=== PATIENT | female | born 1975 | race Hispanic/Latino ===

== ENCOUNTER 2019-04-28 08:38 | Observation (INO) | payer OTHER ==
[2019-04-27 12:40] LABS: Basophils # (Auto) 0.1 K/mm3 (0.0-0.1); Eosinophils % (Auto) 0.4 % (0.0-4.3); Hematocrit 31.5 % (30.3-42.9); Hemoglobin 9.7 gm/dl (10.1-14.3); Lymphocytes # (Auto) 1.7 K/mm3 (1.2-5.4); Lymphocytes % (Auto) 24.1 % (13.4-35.0); Mean Corpuscular HGB Conc 31 % (30-34); Mean Corpuscular Volume 68 fl (79-97); Monocytes # (Auto) 0.5 K/mm3 (0.0-0.8); Monocytes % (Auto) 6.9 % (0.0-7.3); Platelet Count 440 K/mm3 (140-440); Red Blood Count 4.61 M/mm3 (3.65-5.03); Red Cell Distribution Width 23.9 % (13.2-15.2)
[2019-04-27 12:53] LABS: BUN/Creatinine Ratio 13; Blood Urea Nitrogen 10 mg/dL (7-17); Calcium 8.7 mg/dL (8.4-10.2); Hemolysis Index 1
--- NOTE | 2019-04-27 13:40 | Anesthesia Consultation ---
Anesthesia Consult and Med Hx Date of service: 04/28/19 - Airway Anesthetic Teeth Evaluation: Good ROM Head & Neck: Adequate Mental/Hyoid Distance: Adequate Mallampati Class: Class I Intubation Access Assessment: Probably Good - Pulmonary Exam CTA: Yes - Cardiac Exam Cardiac Exam: RRR - Pre-Operative Health Status ASA Pre-Surgery Classification: ASA2 Proposed Anesthetic Plan: General Nerve Block: TAP - Pulmonary Hx Smoking: No Hx Respiratory Symptoms: No - Cardiovascular System Hx Hypertension: No Hx Heart Attack/AMI: No - Central Nervous System CVA: No Hx Back Pain: Yes (LUMBAR) - Gastrointestinal Hx Gastroesophageal Reflux Disease: No - Hematic Hx Anemia: Yes - Other Systems Hx Obesity: Yes (BMI 43) - Additional Comments Anesthesia Medical History Comments: Hx PONV.
--- NOTE | 2019-04-27 14:58 | History and Physical Report ---
History of Present Illness Date of examination: 04/25/19 History of present illness: Patient has been reassessed/reevaluated. H&P has been reviewed. No interval changes. This is a 43 years old female who presents with pelvic pain. The symptoms began 6-12 months ago. She complains of dyspareunia and back pain, but denies dysuria, dysmenorrhea, vaginal itching, vaginal discharge, vaginal odor, painful bowel movements, constipation, diarrhea, nausea, vomiting and fever. Pain is located LUQ, RUQ, umbilicus, suprapubic, flank and low back. She describes the pain as sharp, dull and cramping. Duration of pain is >1 hour and constant. Episodes are > 1 an hour, intermittent and unpredictable. Patient notes pain is worse with activity. Patient notes pain is better with narcotics and rest. Patient's work up has included muliple pelvic ultrasounds and CT scans with showed ppersistent ovarian cyst. Conservative therapies have failed. Patient desires definitive treatment Patient desires definitive treatment Vital Signs: Patient Profile: 43 Years Old Female LMP: 10/2018 Height: 64.0 inches (162.56 cm) Weight: 254 pounds BMI: 43.59 Menstrual History: LMP (date): 10/2018 Current Method of Contraception: None Date of Last Pap Smear: 03/29/2019 Past History : 3 Term Births: 2 Premature Births: 0 Living Children: 2 Para: 2 Mult. Births: 0 Prev : 2 Prev. attempt? none Aborta: 1 Elect. Ab: 0 Spont. Ab: 1 Ectopics: 0 # 1 Delivery date: Weeks Gestation: 41 Delivery type: Hours of labor: .24 Anesthesia type: epidural Delivery location: [facility] [place] Sex: Male weight: [id number] # 2 Delivery date: 05/26 Weeks Gestation: 8 Delivery type: SAB # 3 Delivery date: 08/25 Weeks Gestation: 39 Delivery type: Anesthesia type: spinal Delivery location: [facility] Sex: Male weight: 10 lbs [employer] History Operations: Gastric Bypass: (2004) Cholecystectomy (2004) D&C: Hysteroscopy: () & () S-I Joint (2018) Infection History HIV Risk Eval: no Current Allergies (reviewed today): * ASPIRIN (Critical) * IODINE CONTRAST (Critical) * SHELL FISH (Critical) * CLINDAMYCIN (Critical) * LYRICA (Critical) Past Medical History: Asthma Depression Back pain Past Surgical History: Gastric Bypass: (2004) Cholecystectomy (2004) D&C: Hysteroscopy: () & (03) S-I Joint (2019) Family History Summary: General Comments - FH: Family History of Coronary Heart Disease Family History of Diabetes Family History of Hypertension Family History of Renal Disease Social History: Marital Status: Children: Occupation: Smoking History: Patient has never smoked. Risk Factors: Smoked Tobacco Use: Never smoker Smokeless Tobacco Use: Never Passive smoke exposure: no Drug use: no HIV high-risk behavior: no Caffeine use: 1 drinks per day Alcohol use: no Exercise: yes Times per week: 3 Seatbelt use: 100 % PAP Smear History: Date of Last PAP Smear: 03/29/2019 Review of Systems General Complains of fatigue. Denies fever, chills, sweats, anorexia, weakness, malaise, weight loss and sleep disorder. Complains of pelvic pain and hot flashes. Denies vaginal discharge, incontinence, dysuria, hematuria, urinary frequency, amenorrhea, menorrhagia, abnormal vaginal bleeding, genital sores, decreased libido, painful periods, painful sex, urinary urgency, vaginal dryness, vaginal itching and vaginal odor. CV Denies chest pains, palpitations, syncope, dyspnea on exertion, orthopnea, PND and peripheral edema. Resp Denies cough, dyspnea at rest, excessive sputum, hemoptysis, wheezing and pleurisy. GI Denies nausea, vomiting, diarrhea, constipation, change in bowel habits, abdominal pain, melena, hematochezia, jaundice, gas/bloating, indigestion/heartburn, dysphagia and odynophagia. Breast Denies left breast lump, right breast lump, nipple discharge, bloody discharge from nipple, breast pain, abnormal mammogram and breast enlargement. Psych Denies depression, anxiety, irritability and mood swings. Past History Past Medical History: other (SEE HPI) Past Surgical History: Other (SEE HPI) Social history: full code, other (SEE HPI) Family history: other (SEE HPI) Medications and Allergies Allergies Allergy/AdvReac Type Severity Reaction Status Date / Time aspirin Allergy Anaphylaxis Verified 04/27/19 12:49 clindamycin Allergy Rash Verified 04/27/19 12:49 Iodinated Contrast Media Allergy Rash Verified 04/27/19 12:49 pregabalin [From Lyrica] Allergy Rash Verified 04/27/19 12:49 shellfish derived Allergy Anaphylaxis Verified 04/27/19 12:49 Home Medications Medication Instructions Recorded Confirmed Last Taken Type Black Cohosh Root Extract [Black 160 mg PO DAILY 04/27/19 04/27/19 Unknown History Cohosh] Cyclobenzaprine [Flexeril] 10 mg PO TID PRN 04/27/19 04/27/19 Unknown History Diclofenac Sodium 75 mg PO BID 04/27/19 04/27/19 Unknown History Fish Oil/Borage/Flax/Om3,6,9 1 1,200 mg PO DAILY 04/27/19 04/27/19 Unknown History [[place] 3-6-9 1,200 mg Softgel] Gabapentin [Neurontin] 100 mg PO BID 04/27/19 04/27/19 Unknown History Gabapentin [Neurontin] 800 mg PO QHS 04/27/19 04/27/19 Unknown History Iron,Carbonyl [Perfect Iron] 25 mg PO DAILY 04/27/19 04/27/19 Unknown History Multivit with Calcium,Iron,Min 1 each PO DAILY 04/27/19 04/27/19 Unknown History [Multiple Vitamins For Women] traMADoL [Ultram] 50 mg PO BID 04/27/19 04/27/19 Unknown History Active Meds: Active Medications Acetaminophen (Tylenol) 1,000 mg PO ONCE ONE Stop: 04/28/19 06:01 Fentanyl (Sublimaze) 100 mcg IV ONCE PRN PRN Reason: sedation for nerve block Cefazolin Sodium 3 gm/ Sodium (Chloride) 100 mls @ 100 mls/30 min IV PREOP NR; Protocol Lactated Ringer's (Lactated Ringers) 1,000 mls @ 100 mls/hr IV DIRECT ROSA Midazolam HCl (Versed) 2 mg IV PREOP NR Scopolamine (Transderm-Scop) 1 each TD PREOP NR Review of Systems Constitutional: other (SEE HPI) Exam - Physical Exam Narrative exam: HEENT: normocephalic, no lesions or deformities Skin no ulcers, xanthomas Chest: respiratory effort normal, clear to auscultation CV: regular, normal S1-S2, no murmur, no rub, no gallop Abdomen: Obese normal bowel sounds, soft, nontender, no HSM Well healed pfannenstiel scar Neuro: no gross anomalities Extremities: no clubbing, cyanosis, or edema [employer] Exams Vulva/Vagina: normal appearance, no discharge, lesions. No evidence of cystocele or rectocele. Cervix: normal appearance, no lesions, no discharge Uterus: unable to palpate due to obesity Adnexae: unable to palpate due to obesity Rectovaginal: exam defered Results - Labs CBC & Chem 7: 04/27/19 12:20 04/27/19 12:20 Labs: Abnormal lab results 04/27/19 Range/Units 12:20 Hgb 9.7 L (10.1-14.3) gm/dl MCV 68 L (79-97) fl MCH 21 L (28-32) pg RDW 23.9 H (13.2-15.2) % Assessment and Plan - Patient Problems (1) Chronic pelvic pain in female Current Visit: No Status: Acute Plan to address problem: Probably secondary to # 2 Conservative therapies have failed. Patient desires definitive treatment Medical and surgical treatment options discussed Patient desires hysterectomy Discussed risks and benefits of laparotomy, laparoscopy, vaginal and robotic assisted approaches for hysterectomies. Patient desires robotic assisted total hysterectomy.Patient desires robotic assisted total hysterectomy. Consent reviewed and signed . The risks and alternatives for this surgery were reviewed with the patient. Discuss the risks of the surgery including infection, bleeding possibly heavy enough to require a blood transfusion, possible damage to bowel, bladder or ureter. Patient understand that this surgery with make her sterile.Patient understands if her ovaries are removed she will become menopausal. Also if unable to complete robitcally a laparotomy may required. Patient advised the small risks of spreading of malignancy if morcellator is used during the surgery patient understands and approve of use if necessary (2) Bilateral ovarian cysts Current Visit: No Status: Acute Plan to address problem: Probable etiology of pain Conservative therapies have failed. Patient desires definitive treatment Discussed oophorectomy Patient desires definitive treatment Patient desires hysterectomy (3) Premature menopause Current Visit: No Status: Chronic (4) H/O: depression Current Visit: No Status: Chronic (5) Asthma Current Visit: No Status: Chronic Qualifiers: Asthma severity: mild Asthma persistence: intermittent (6) BMI 40.0-44.9, adult Current Visit: No Status: Chronic
[~2019-04-28 08:38] MED LIST: ACETAMINOPHEN 500 MG TAB PO NR; LACTATED RINGERS 1,000 ML IV SCH; MIDAZOLAM 2 MG/2 ML INJ IV NR; SCOPOLAMINE TRANSDERMAL PATCH 72 HR TD NR; fentaNYL 100 MCG/2 ML INJ IV PRN
[2019-04-28] MEDS ORDERED: BUPIVACAINE-EPINEPHRINE/PF 0.25%-1:200,000 (30 ML) VIAL INFILTRATI ONE (09:29)
[2019-04-28] MEDS ORDERED: dexAMETHasone 4 MG/ML VIAL ONE (09:29)
[2019-04-28] MEDS ORDERED: PROPOFOL 200 MG/20 ML VIAL IV ONE (13:01)
[2019-04-28] MEDS ORDERED: fentaNYL 100 MCG/2 ML INJ ONE (13:02)
[2019-04-28] MEDS ORDERED: LIDOCAINE MPF (2%) 20 MG/1 ML VIAL 5 ML ONE (13:02)
[2019-04-28] MEDS ORDERED: NEOMY 40 MG/POLYMYXIN B 200,000 UNITS/ML (GU) AMPULE IR ONE ×2 (15:01→16:00)
[2019-04-28] MEDS ORDERED: ROCURONIUM 50 MG/5 ML INJ IV ONE ×2 (15:08→16:05)
[2019-04-28] MEDS ORDERED: SODIUM CHLORIDE 0.9% IRR 1,000 ML BOTTLE IR ONE (16:01)
[2019-04-28] MEDS ORDERED: ONDANSETRON 4 MG/2 ML INJ ONE (16:57)
[2019-04-28] MEDS ORDERED: KETOROLAC 30 MG/1 ML INJ ONE (16:57)
[2019-04-28] MEDS ORDERED: METOCLOPRAMIDE 10 MG/2 ML INJ ONE (16:57)
[2019-04-28] MEDS ORDERED: NEOSTIGMINE 10MG/10 ML INJ MDV ONE (16:57)
[2019-04-28] MEDS ORDERED: GLYCOPYRROLATE 0.4 MG/2 ML INJ ONE (16:57)
[2019-04-28] MEDS ORDERED: dexAMETHasone 20 MG/5 ML VIAL ONE (16:57)
[2019-04-28] MEDS ORDERED: LACTATED RINGERS 1,000 ML ONE (17:13)
--- NOTE | 2019-04-28 17:25 | Operative Report ---
Operative Report Operative Report: Operative Report: Date of procedure: 04/28/2019 Pre-operative diagnosis: Pelvic pain with persistent right ovarian cysts Post-operative diagnosis: Same with right tubal cysts and pelvic adhesions Procedure name(s): Robotic assisted total hysterectomy with bilateral salpingo- oophorectomy with lysis of adhesions Surgeon: Albert Galvan MD Celery Tier: Leeanne Dumas, certified registered locksmith Anesthesia: General EBL: 50 mL Complications: None Findings: Uterus approximately 8 weeks in size with proximally 6-7 cm clear paratubal cysts on her right with normal ovaries bilaterally. Patient with adhesions between the anterior uterus and bladder Specimen(s): Uterus including cervix was bilateral adnexa Procedure: Patient was brought to the operating room where general anesthesia was induced without difficulty. Patient was placed in the dorsal lithotomy position. Prepped and draped in the usual sterile manner for robotic procedure. Butcher catheter was placed without difficulty. Speculum was placed in the vagina. A small V-Care Uterine manipulator was placed without difficulty. A ttention was now switched to the patient's abdomen. A vertical supra-umbilicus incision was made with a scalpel. A 10-12 trocar was placed in this incision under direct visualization. Intra-abdominal placement was verified with no evidence of internal organ damage. The patient pelvic findings were noted as above. It was determined that the patient was a candidate for robotic procedure. On both sides the umbilical incision at 8 cm, incisions were made for robotic trocar. Each robotic trocar was placed under direct visualization with no evidence of internal organ damage. One senior care assistant port was then placed. One 5 mm trocar was placed 2 fingerbreadths above the right iliac crest under direct visualization with no evidence of internal organ damage. At this time the patient was placed in extreme Trendelenburg. The da Katelyn robot was then docked on the patient's left side. The da Katelyn device was attached to the trochars and instruments placed. At this time I took my place under the robotic operating weinstein. The adhesions between the uterus and the bladder were taken down sharply and bluntly. Starting on the patient's right side the right ureter was clearly seen out of the operative field. The ovarian vessels were clearly seen cauterize and cut with the robotic scissors. The mesosalpinx were cauterized and cut reaching to the round ligament. The round ligament was cauterized and cut. The leaves of the broad ligament on that side was anteriorly and posteriorly. The anterior leaves were use to form a bladder flap anteriorly the posterior leaf was cut exposing the uterine vessels on that side. The uterine vessels were cauterized and cut the bladder flap was more clearly made. Attention was then switched to the patient's left side. Where the ureter was again identified and cleared out of the field. The same procedure was cauterized and cut and the ovarian vessels and receiving with some incising the round ligament broad the broad ligament then cauterized and cut and the uterine vessels were performed.. At this time the uterus was appearing very cyanotic. After inspecting the bladder flap insured no evidence of bladder injury, the c olpotomy was then started. Incision started at 6:00 until the V-Care could be seen. This incision was extended from 6:00 to 9:00. Then from 6:00 to 3:00. Then from 9:00 to 12:00. This incision was extended from 3:00 to 12:00. At this time colpotomy was complete with no evidence of adjacent organ damage. The senior care assistant remove the uterus from through the colpotomy site. The vaginal cuff was irrigated and cauterized and found to be hemostatic. The cuff was closed with roboticly using 0 V- Lock suture. This closure was hemostatic after irrigation and Bovie. All pedicles were inspected and found to be hemostatic. The ureters were identified bilaterally and found to be functioning normal. The Butcher bag had clear yellow urine. Michelle was placed across the vaginal cuff and the ligated vessels All instruments were then removed. The large trocar sites were closed in layers 0 Vicyl and 4-0 Monocryl. The smaller incisions were closed subcuticularly with 4-0 Monocryl. The patient tolerated procedure well. She was awakened in the operating room and accompanied to the recovery room in good condition.
[2019-04-28] MEDS ORDERED: HYDROmorphone 1 MG/1 ML INJ ONE (17:39)
[2019-04-28] MEDS: HYDROmorphone 1 MG/1 ML INJ IV PRN ×3 (17:40→23:06)
--- NOTE | 2019-04-28 18:06 | Anesthesia Day of Surgery ---
Anesthesia Day of Surgery - Day of Surgery Patient Examined: Yes Patient H&P Reviewed: Yes Patient is NPO: Yes
--- NOTE | 2019-04-28 18:35 | Post Anesthesia Evaluation ---
- Post Anesthesia Evaluation Patient Participated: Yes Airway Patent: Yes Stable Respiratory Function: Yes Nausea/Vomiting: No Temp > 96.8F: Yes Pain Manageable: Yes Adequeate Hydration: Yes Anesthesia Complications: No
[2019-04-28] MEDS ORDERED: MAGNESIUM HYDROXIDE (MOM) ORAL LIQD UDC PO PRN (19:28)
[2019-04-28] MEDS ORDERED: ONDANSETRON 4 MG ODT TAB PO PRN (19:28)
[2019-04-28] MEDS: D5W/LACTATED RINGERS 1,000 ML IV SCH (20:04)
[2019-04-28] MEDS: ceFAZolin/NS 1 GM/50 ML 1 GM/50 ML BAG IV SCH (21:59)
[2019-04-28] MEDS: DOCUSATE SODIUM 100 MG CAP PO SCH (21:59)
[2019-04-28] MEDS ORDERED: ESTRADIOL 0.1 MG/24 HR PATCH WEEKLY TD SCH (22:00)
[2019-04-28] MEDS: KETOROLAC 30 MG/1 ML INJ IV SCH (22:05)
[2019-04-29] MEDS: KETOROLAC 30 MG/1 ML INJ IV SCH ×3 (01:54→17:17)
[2019-04-29] MEDS: ceFAZolin/NS 1 GM/50 ML 1 GM/50 ML BAG IV SCH (04:39)
[2019-04-29] MEDS: D5W/LACTATED RINGERS 1,000 ML IV SCH (06:01)
[2019-04-29] MEDS: HYDROcodone/ACETAMINOPHEN 5-325 MG TAB PO PRN ×3 (06:03→17:29)
[2019-04-29 07:09] LABS: Hematocrit 29.1 % (30.3-42.9); Hemoglobin 8.9 gm/dl (10.1-14.3)
--- NOTE | 2019-04-29 09:04 | Progress Note ---
Assessment and Plan - Patient Problems (1) Chronic pelvic pain in female Current Visit: No Status: Acute (2) Bilateral ovarian cysts Current Visit: No Status: Acute (3) Premature menopause Current Visit: No Status: Chronic (4) H/O: depression Current Visit: No Status: Chronic (5) Asthma Current Visit: No Status: Chronic Qualifiers: Asthma severity: mild Asthma persistence: intermittent (6) BMI 40.0-44.9, adult Current Visit: No Status: Chronic (7) S/P hysterectomy Current Visit: Yes Status: Acute Plan to address problem: Discuss operative findings with patient and questions answered. Patient without fever. Will ambulate in halls this morning good urine output. We will continue routine postoperative care. Hematocrit was 29%. Will advance diet also. (8) Status post robot-assisted surgical procedure Current Visit: Yes Status: Acute Subjective Date of service: 04/29/19 Patient Reports: Positive: feels better, still having pain, pain is less, tolerating liquids well, voiding w/o difficulty, no flatus, no bowel movement, afebrile Objective Vital Signs - 12hr 04/28/19 04/29/19 23:38 04:23 Temperature 99.0 F 98.7 F Pulse Rate 95 H 82 Respiratory 16 17 Rate Blood Pressure 105/67 93/65 O2 Sat by Pulse 94 97 Oximetry - General physical appearance well developed, obese - Respiratory normal expansion - Abdomen soft, tender (Appropriate post-operative) - Integumentary no rash, no growths, no abnormal pigmentation - Psychiatric oriented to time, oriented to person, oriented to place, speech is normal, memory intact - Labs 04/29/19 12:34 04/29/19 12:34
[2019-04-29] MEDS ORDERED: ESTRADIOL 0.1 MG/24 HR PATCH WEEKLY TD ONE (09:30)
[2019-04-29] MEDS: DOCUSATE SODIUM 100 MG CAP PO SCH (10:34)
[2019-04-29 12:44] LABS: Basophils % (Auto) 0.2 % (0.0-1.8); Hemoglobin 9.4 gm/dl (10.1-14.3); Lymphocytes # (Auto) 2.7 K/mm3 (1.2-5.4); Mean Corpuscular HGB Conc 30 % (30-34); Monocytes # (Auto) 0.7 K/mm3 (0.0-0.8); Monocytes % (Auto) 4.6 % (0.0-7.3); Platelet Count 511 K/mm3 (140-440); Red Blood Count 4.49 M/mm3 (3.65-5.03)
[2019-04-29 12:45] LABS: Mean Corpuscular Volume 69 fl (79-97); Red Cell Distribution Width 23.7 % (13.2-15.2)
--- NOTE | 2019-04-29 13:02 | Event Note ---
Date: 04/29/19 Patient's nurse reported that the patient has some dizziness upon walking approximately 11:30 this a.m.. Patient now sitting in chair in the room she denies any dizziness now states she feels fine. Patient's blood pressures running between 90 -110/60's heart rate and 80s. Patient had a stat CBC done which revealed her hematocrit 31% which increases her a.m. hematocrit. Preoperative hematocrit was 31%. We will continue to monitor for now and watch for any orthostatic symptoms. Patient desires discharge today.
[2019-04-29 13:04] LABS: Calcium 9.1 mg/dL (8.4-10.2)
[2019-04-29 17:40] VITALS: BP 108/61
--- NOTE | 2019-04-29 17:57 | Discharge Summary ---
Providers - Providers Date of Admission: 04/28/19 17:26 Date of discharge: 04/29/19 Attending physician: JATIN JOSEPH Hospitalization Reason for admission: pelvic pain with large ovarian cysts Condition: Good Disposition: DC-01 TO HOME OR SELFCARE - Discharge Diagnoses (1) Chronic pelvic pain in female Status: Acute (2) Bilateral ovarian cysts Status: Acute (3) Premature menopause Status: Chronic (4) H/O: depression Status: Chronic (5) Asthma Status: Chronic Qualifiers: Asthma severity: mild Asthma persistence: intermittent (6) BMI 40.0-44.9, adult Status: Chronic (7) S/P hysterectomy Status: Acute (8) Status post robot-assisted surgical procedure Status: Acute Core Measure Documentation - Palliative Care Palliative Care/ Comfort Measures: Not Applicable - Core Measures Any of the following diagnoses?: none Exam - Constitutional Vitals: Temp Pulse Resp BP Pulse Ox 98.0 F 74 18 108/61 99 04/29/19 16:17 04/29/19 16:17 04/29/19 16:17 04/29/19 16:17 04/29/19 16:17 General appearance: Present: no acute distress - Respiratory Respiratory effort: normal - Cardiovascular Rhythm: regular - Extremities Extremities: no ischemia - Abdominal General gastrointestinal: Present: soft, tender (appropriate postop), hypoactive bowel sounds Female genitourinary: Present: deferred - Rectal Rectal Exam: deferred - Integumentary Integumentary: Present: clear, warm, dry - Psychiatric Psychiatric: appropriate mood/affect, intact judgment & insight - Neurologic Neurologic: moves all extremities Plan Activity: advance as tolerated Diet: regular Wound: open to air Additional Instructions: Patient instructed no heavy lifting for 4 weeks. No intercourse for 8 weeks. Call office for fever, chills, nausea, vomiting or pain not controlled by pain medications. Ambulation is encouraged. Patient's call for heavy vaginal bleeding. Patient instructed to keep her scheduled post operative office appointment. Follow up with: LADONNA KENT [Other] - 7 Days Prescriptions: Ibuprofen [Motrin 800 MG tab] 800 mg PO Q6H PRN #30 tablet PRN Reason: Pain oxyCODONE /ACETAMINOPHEN [Percocet 5/325 mg] 1 - 2 tab PO Q4H PRN #30 tablet PRN Reason: Pain, Moderate oxyCODONE /ACETAMINOPHEN [Percocet 5/325 mg] 1 - 2 tab PO Q4H PRN #30 tablet PRN Reason: Pain, Moderate
== END 2019-04-29 19:10 | disposition home or self-care (01) ==
LOC: OR 08:38 → OB 17:26
PROVIDERS: ADMIT Obstetrics & Gynecology; ATTEND Obstetrics & Gynecology
DX: R10.2 Pelvic and perineal pain (principal); N83.201 Unspecified ovarian cyst, right side; N83.202 Unspecified ovarian cyst, left side; E28.319 Asymptomatic premature menopause; J45.909 Unspecified asthma, uncomplicated; F32.9 Major depressive disorder, single episode, unspecified; Z98.890 Other specified postprocedural states; Z68.41 Body mass index [BMI] 40.0-44.9, adult; Z90.710 Acquired absence of both cervix and uterus; Z86.59 Personal history of other mental and behavioral disorders; Z98.84 Bariatric surgery status; Z90.49 Acquired absence of other specified parts of digestive tract; Z98.891 History of uterine scar from previous surgery
CPT/HCPCS: 36415; 58571; 64450; 80048; 84703; 85014; 85018; 85025; 86850; 86900; 86901; 88307; 88312; 88341; 88342; 96365; 96366; 96375; 96376; G0378; J0690; J1100; J1170; J1885; J2250; J2405; J2704; J2710; J2765; J3010; J7120; J7121; S2900; Q0162

== ENCOUNTER 2019-05-08 16:28 | Emergency (ER) | payer OTHER ==
--- NOTE | 2019-05-08 16:51 | Event Note ---
ED Screening Note Date of service: 05/08/19 Time: 16:46 ED Screening Note: This is a 43 y.o. F. that presents with pelvic pain and vaginal pain that is worsening since surgery. 04/28/19 total hysterectomy with ovariectomy. Surgeon Dr. Galvan. States informed Dr. Galvan who instructed to come to ER. This initial assessment/diagnostic orders/clinical plan/treatment(s) is/are subject to change based on patients health status, clinical progression and re- assessment by fellow clinical providers in the ED. Further treatment and workup at subsequent clinical providers discretion. Patient/guardian urged not to elope from the ED as their condition may be serious if not clinically assessed and managed. Initial orders include: Labs and pelvic US
[2019-05-08 17:37] LABS: Hematocrit 30.5 % (30.3-42.9); Hemoglobin 9.5 gm/dl (10.1-14.3); Mean Corpuscular HGB Conc 31 % (30-34); Platelet Count 512 K/mm3 (140-440); Red Blood Count 4.39 M/mm3 (3.65-5.03)
[2019-05-08 17:39] LABS: Mean Corpuscular Volume 70 fl (79-97); Red Cell Distribution Width 22.9 % (13.2-15.2)
[2019-05-08 17:52] LABS: Alanine Aminotransferase 14 units/L (7-56); Albumin 4.3 g/dL (3.9-5); BUN/Creatinine Ratio 13; Blood Urea Nitrogen 10 mg/dL (7-17); Calcium 8.7 mg/dL (8.4-10.2); Hemolysis Index 3
[2019-05-08 18:47] LABS: Basophils % (Manual) 0 % (0.0-1.8); Total Cells Counted 100
[2019-05-08 18:48] LABS: Hypochromasia 2+; Ovalocytes 1+; Platelet Estimate Appears Increased
[2019-05-08 18:49] LABS: Large Platelets 1+
[2019-05-08 19:04] LABS: Bilirubin,Urine NEG (Negative); Blood,Urine NEG (Negative); Color,Urine Yellow (Yellow); Protein,Urine <15 mg/dL mg/dL (Negative); RBC,Urine < 1.0 /HPF (0.0-6.0); Urobilinogen,Urine < 2.0 mg/dL (<2.0)
--- NOTE | 2019-05-08 22:20 | Cat Scan Report ---
CT ABDOMEN AND PELVIS WITHOUT CONTRAST INDICATION / CLINICAL INFORMATION: abdominal pain, s/p hysterectomy on 04/28/19. Patient allergic to IV contrast. TECHNIQUE: Axial CT images were obtained through the abdomen and pelvis without IV contrast. All CT scans at [facility] location are performed using CT dose reduction for ALARA by means of automated exposure control. COMPARISON: None available. FINDINGS: LOWER CHEST: No significant abnormality. LIVER: No significant abnormality. GALLBLADDER: Surgically absent. BILE DUCTS: No significant abnormality. PANCREAS: No significant abnormality. SPLEEN: No significant abnormality. ADRENALS: 2.3 x 1.6 cm hypodense right adrenal nodule measuring -17 Hounsfield units characteristic o f adrenal adenoma. Left adrenal is normal. RIGHT KIDNEY and URETER: No significant abnormality. LEFT KIDNEY and URETER: No significant abnormality. STOMACH and SMALL BOWEL: Previous gastric bypass. No acute small bowel abnormality. COLON: No significant abnormality. APPENDIX: Not visualized. PERITONEUM: No free fluid. No free air. No fluid collection. LYMPH NODES: No significant adenopathy. AORTA and ARTERIES: No significant abnormality. IVC and VEINS: No significant abnormality. URINARY BLADDER: No significant abnormality. REPRODUCTIVE ORGANS: Uterus is absent. No significant adnexal abnormality. ADDITIONAL FINDINGS: Postsurgical changes in the anterior abdominal wall possibly related to recent h ysterectomy. SKELETAL SYSTEM: Left sacroiliac fusion hardware. No bony ankylosis. No acute osseous abnormality. IMPRESSION: 1. No acute process in the abdomen or pelvis. 2. No inflammatory process or bowel obstruction. 3. Benign right adrenal adenoma. No additional imaging evaluation is needed. Signer Name: Jaci Groves MD Signed: 05/08/2019 10:16 PM Workstation Name: [id number]
--- NOTE | 2019-05-08 22:54 | Emergency Department Report ---
ED Female HPI - General Chief complaint: Abdominal Pain Stated complaint: REFERED BY DOCTOR CT SCAN Time Seen by Provider: 05/08/19 16:46 Source: patient Mode of arrival: Ambulatory Limitations: No Limitations - History of Present Illness Initial comments: Mrs. Gaytan is a very pleasant 43-year-old female who is 10 days status post robotic total hysterectomy with bilateral oophorectomy. Surgery performed by Dr. Galvan. She's had intense sharp pain. She has sharp pain in the pelvic region. No bleeding. She had a low-grade temperature which spontaneously resolved. 8 out of 10 pain. Gradual onset for the last several days. She completed 30 day supply of Percocet due to intense post-surgical pain. No radiation of the pain. No drainage of the wounds MD Complaint: pelvic pain -: Gradual, days(s) (10) Severity: severe Severity scale (0 -10): 8 Quality: sharp Consistency: constant Improves with: movement Worsens with: none Are you Now?: No - Related Data Home Medications Medication Instructions Recorded Confirmed Last Taken Black Cohosh Root Extract [Black 160 mg PO DAILY 04/27/19 04/27/19 Unknown Cohosh] Cyclobenzaprine [Flexeril] 10 mg PO TID PRN 04/27/19 04/27/19 Unknown Diclofenac Sodium 75 mg PO BID 04/27/19 04/27/19 Unknown Fish Oil/Borage/Flax/Om3,6,9 1 1,200 mg PO DAILY 04/27/19 04/27/19 Unknown [[place] 3-6-9 1,200 mg Softgel] Gabapentin [Neurontin] 100 mg PO BID 04/27/19 04/27/19 Unknown Gabapentin [Neurontin] 800 mg PO QHS 04/27/19 04/27/19 Unknown Iron,Carbonyl [Perfect Iron] 25 mg PO DAILY 04/27/19 04/27/19 Unknown Multivit with Calcium,Iron,Min 1 each PO DAILY 04/27/19 04/27/19 Unknown [Multiple Vitamins For Women] traMADoL [Ultram] 50 mg PO BID 04/27/19 04/27/19 Unknown Previous Rx's Medication Instructions Recorded Last Taken Type Ibuprofen [Motrin 800 MG tab] 800 mg PO Q6H PRN #30 tablet 04/29/19 Unknown Rx oxyCODONE /ACETAMINOPHEN [Percocet 1 - 2 tab PO Q4H PRN #30 tablet 04/29/19 Unknown Rx 5/325 mg] oxyCODONE /ACETAMINOPHEN [Percocet 1 - 2 tab PO Q4H PRN #30 tablet 04/29/19 Unknown Rx 5/325 mg] oxyCODONE /ACETAMINOPHEN [Percocet 1 tab PO Q6HR PRN #15 tablet 05/08/19 Unknown Rx 5/325] Allergies Allergy/AdvReac Type Severity Reaction Status Date / Time aspirin Allergy Anaphylaxis Verified 04/27/19 12:49 clindamycin Allergy Rash Verified 04/27/19 12:49 Iodinated Contrast Media Allergy Rash Verified 04/27/19 12:49 pregabalin [From Lyrica] Allergy Rash Verified 04/27/19 12:49 shellfish derived Allergy Anaphylaxis Verified 04/27/19 12:49 ED Review of Systems ROS: Stated complaint: REFERED BY DOCTOR CT SCAN Other details as noted in HPI Comment: All other systems reviewed and negative Constitutional: denies: fever, malaise Cardiovascular: denies: chest pain Gastrointestinal: abdominal pain. denies: nausea, vomiting Musculoskeletal: denies: back pain ED Past Medical Hx - Past Medical History Previous Medical History?: Yes Hx Hypertension: No Hx Heart Attack/AMI: No Hx Congestive Heart Failure: No Hx Diabetes: No Hx Asthma: No Hx COPD: No Hx HIV: No Additional medical history: Traumatic injury SI joint, lumbar degenerative disc disease - Surgical History Hx Cholecystectomy: Yes Additional Surgical History: August 2018: Surgery to repair injury to sacroiliac joint after trauma - Social History Smoking Status: Never Smoker Substance Use Type: None - Medications Home Medications: Home Medications Medication Instructions Recorded Confirmed Last Taken Type Black Cohosh Root Extract [Black 160 mg PO DAILY 04/27/19 04/27/19 Unknown History Cohosh] Cyclobenzaprine [Flexeril] 10 mg PO TID PRN 04/27/19 04/27/19 Unknown History Diclofenac Sodium 75 mg PO BID 04/27/19 04/27/19 Unknown History Fish Oil/Borage/Flax/Om3,6,9 1 1,200 mg PO DAILY 04/27/19 04/27/19 Unknown History [[place] 3-6-9 1,200 mg Softgel] Gabapentin [Neurontin] 100 mg PO BID 04/27/19 04/27/19 Unknown History Gabapentin [Neurontin] 800 mg PO QHS 04/27/19 04/27/19 Unknown History Iron,Carbonyl [Perfect Iron] 25 mg PO DAILY 04/27/19 04/27/19 Unknown History Multivit with Calcium,Iron,Min 1 each PO DAILY 04/27/19 04/27/19 Unknown History [Multiple Vitamins For Women] traMADoL [Ultram] 50 mg PO BID 04/27/19 04/27/19 Unknown History Ibuprofen [Motrin 800 MG tab] 800 mg PO Q6H PRN #30 tablet 04/29/19 Unknown Rx oxyCODONE /ACETAMINOPHEN [Percocet 1 - 2 tab PO Q4H PRN #30 tablet 04/29/19 Unknown Rx 5/325 mg] oxyCODONE /ACETAMINOPHEN [Percocet 1 - 2 tab PO Q4H PRN #30 tablet 04/29/19 Unknown Rx 5/325 mg] oxyCODONE /ACETAMINOPHEN [Percocet 1 tab PO Q6HR PRN #15 tablet 05/08/19 Unknown Rx 5/325] ED Physical Exam - General Limitations: No Limitations General appearance: alert, in no apparent distress - Head Head exam: Present: atraumatic, normocephalic - Eye Eye exam: Present: normal appearance - ENT ENT exam: Present: mucous membranes moist - Neck Neck exam: Present: normal inspection, full ROM - Respiratory Respiratory exam: Present: normal lung sounds bilaterally. Absent: respiratory distress, wheezes, rales, rhonchi - Cardiovascular Cardiovascular Exam: Present: regular rate, normal rhythm, normal heart sounds. Absent: systolic murmur, diastolic murmur, rubs, gallop - GI/Abdominal GI/Abdominal exam: Present: soft, normal bowel sounds, other (four small horizontal surgical incisions clean dry and intact without surrounding erythema or edema or purulence). Absent: distended, tenderness, guarding, rebound - Extremities Exam Extremities exam: Present: normal inspection - Neurological Exam Neurological exam: Present: alert, oriented X3 - Psychiatric Psychiatric exam: Present: normal affect, normal mood - Skin Skin exam: Present: warm, dry, intact, normal color. Absent: rash ED Course Vital Signs 05/08/19 05/08/19 05/08/19 16:48 20:49 21:00 Temperature 98.4 F 98.3 F Pulse Rate 85 77 Respiratory 18 20 12 Rate Blood Pressure Blood Pressure 126/88 130/77 [Left] O2 Sat by Pulse 98 100 Oximetry 05/08/19 05/08/19 05/08/19 21:15 21:40 21:45 Temperature Pulse Rate 79 99 H 83 Respiratory 16 16 11 L Rate Blood Pressure 124/81 124/81 122/79 Blood Pressure [Left] O2 Sat by Pulse 100 97 100 Oximetry 05/08/19 22:00 Temperature Pulse Rate 81 Respiratory 14 Rate Blood Pressure 122/82 Blood Pressure [Left] O2 Sat by Pulse 100 Oximetry ED Medical Decision Making - Lab Data Result diagrams: 05/08/19 17:06 05/08/19 17:06 Laboratory Results - last 24 hr 05/08/19 05/08/19 05/08/19 17:06 17:06 Unknown WBC 9.3 RBC 4.39 Hgb 9.5 L Hct 30.5 MCV 70 L MCH 22 L MCHC 31 RDW 22.9 H Plt Count 512 H Add Manual Diff Complete Total Counted 100 Seg Neuts % (Manual) 71.0 H Band Neutrophils % 0 Lymphocytes % (Manual) 22.0 Reactive Lymphs % (Man) 0 Monocytes % (Manual) 4.0 Eosinophils % (Manual) 3.0 Basophils % (Manual) 0 Metamyelocytes % 0 Myelocytes % 0 Promyelocytes % 0 Blast Cells % 0 Nucleated RBC % Not Reportable Seg Neutrophils # Man 6.6 Band Neutrophils # 0.0 Lymphocytes # (Manual) 2.0 Abs React Lymphs (Man) 0.0 Monocytes # (Manual) 0.4 Eosinophils # (Manual) 0.3 Basophils # (Manual) 0.0 Metamyelocytes # 0.0 Myelocytes # 0.0 Promyelocytes # 0.0 Blast Cells # 0.0 WBC Morphology Not Reportable Hypersegmented Neuts Not Reportable Hyposegmented Neuts Not Reportable Hypogranular Neuts Not Reportable Smudge Cells Not Reportable Toxic Granulation Not Reportable Toxic Vacuolation Not Reportable Dohle Bodies Not Reportable Pelger-Huet Anomaly Not Reportable Gerda Rods Not Reportable Platelet Estimate Appears increased Clumped Platelets Not Reportable Plt Clumps, EDTA Not Reportable Large Platelets 1+ Giant Platelets Not Reportable Platelet Satelliting Not Reportable Plt Morphology Comment Not Reportable RBC Morphology Not Reportable Dimorphic RBCs Not Reportable Polychromasia Not Reportable Hypochromasia 2+ Poikilocytosis Not Reportable Anisocytosis Not Reportable Microcytosis 2+ Macrocytosis Not Reportable Spherocytes Not Reportable Pappenheimer Bodies Not Reportable Sickle Cells Not Reportable Target Cells Not Reportable Tear Drop Cells Not Reportable Ovalocytes 1+ Helmet Cells Not Reportable Sargent-Wann Bodies Not Reportable [place] Rings Not Reportable Siri Cells Not Reportable Bite Cells Not Reportable Crenated Cell Not Reportable Elliptocytes 1+ Acanthocytes (Spur) Not Reportable Rouleaux Not Reportable Hemoglobin C Crystals Not Reportable Schistocytes Not Reportable Malaria parasites Not Reportable Sheldon Bodies Not Reportable Hem Pathologist Commnt No Sodium 139 Potassium 5.0 Chloride 101.7 Carbon Dioxide 23 Anion Gap 19 BUN 10 Creatinine 0.8 Estimated GFR > 60 BUN/Creatinine Ratio 13 Glucose 98 Calcium 8.7 Total Bilirubin < 0.20 AST 17 ALT 14 Alkaline Phosphatase 112 Total Protein 6.8 Albumin 4.3 Albumin/Globulin Ratio 1.7 Urine Color Yellow Urine Turbidity Slightly-cloudy Urine pH 7.0 Ur Specific [place] 1.009 Urine Protein <15 mg/dl Urine Glucose (UA) Neg Urine Ketones Neg Urine Blood Neg Urine Nitrite Neg Urine Bilirubin Neg Urine Urobilinogen < 2.0 Ur Leukocyte Esterase Neg Urine WBC (Auto) 1.0 Urine RBC (Auto) < 1.0 U Epithel Cells (Auto) 15.0 H - Radiology Data Radiology results: report reviewed CT abdomen and pelvis revealed postsurgical changes in the anterior abdominal wall, left sacroiliac fusion hardware , right adrenal nodule adenoma - Medical Decision Making Mrs. Simmons presents with postsurgical postoperative pain. No evidence of fluid collection, infection or internal bleeding. She was given return precautions or reassurance. She'll follow with Dr. Galvan this week. I have prescribed 15 tablets of Percocet. Critical care attestation.: If time is entered above; I have spent that time in minutes in the direct care of this critically ill patient, excluding procedure time. ED Disposition Clinical Impression: Post-operative pain, S/P hysterectomy, Status post robot-assisted surgical procedure Disposition: DC- TO HOME OR SELFCARE Is pt being admited?: No Does the pt Need Aspirin: No Condition: Stable Additional Instructions: Please return to the ER for any new symptoms including fever severe vomiting and worsening pain. It truly was a pleasure meeting you and your son. Prescriptions: oxyCODONE /ACETAMINOPHEN [Percocet 5/325] 1 tab PO Q6HR PRN #15 tablet PRN Reason: Pain Referrals: PRIMARY CARE, [Primary Care Provider] - 3-5 Days JATIN GALVAN MD [Staff Physician] - 3-5 Days
[2019-05-08] MEDS ORDERED: oxyCODONE /ACETAMINOPHEN 5-325MG TAB PO ONE (22:56)
[2019-05-08] MEDS ORDERED: IBUPROFEN 800 MG TAB PO ONE (22:56)
[2019-05-08 23:02] VITALS: BP 133/85
== END 2019-05-08 23:12 | disposition home or self-care (01) ==
LOC: ED 16:28
DX: R10.2 Pelvic and perineal pain (principal); G89.18 Other acute postprocedural pain; M19.90 Unspecified osteoarthritis, unspecified site; Z90.710 Acquired absence of both cervix and uterus; Z98.890 Other specified postprocedural states; Z79.1 Long term (current) use of non-steroidal anti-inflammatories (NSAID); Z79.899 Other long term (current) drug therapy; Z88.6 Allergy status to analgesic agent; Z91.013 Allergy to seafood; Z88.8 Allergy status to other drugs, medicaments and biological substances
CPT/HCPCS: 36415; 74176; 80053; 81001; 85007; 85025